=== PATIENT | male | born 1990 | race African-American/Black ===

== ENCOUNTER 2023-01-25 00:32 | Emergency (ER) | payer OTHER ==
[~2023-01-25] VITALS: Ht 180.3 cm; Wt 70.5 kg
[2023-01-25] MEDS ORDERED: BACITRACIN 0.9 GM PACKET OINTMENT TP ONE (01:30)
[2023-01-25] MEDS ORDERED: PERTUSS(ACELL),DIPH,TET VAC/PF 0.5 ML SYRINGE IM. ONE (01:30)
[2023-01-25] MEDS ORDERED: LIDOCAINE 1%/EPI 1:200,000/PF 30 ML VIAL SQ ONE (01:30)
[2023-01-25] MEDS ORDERED: ACETAMINOPHEN 500 MG TABLET PO ONE (01:30)
[2023-01-25 03:48] VITALS: BP 136/71; PULSE 88; RESP 18; TEMP 98.9
== END 2023-01-25 05:08 | disposition home or self-care (01) ==
LOC: EMS 00:33
DX: S02.2XXA Fracture of nasal bones, initial encounter for closed fracture (principal); S01.81XA Laceration without foreign body of other part of head, initial encounter; S01.111A Laceration without foreign body of right eyelid and periocular area, initial encounter; Y08.89XA Assault by other specified means, initial encounter; Y93.89 Activity, other specified; Y92.89 Other specified places as the place of occurrence of the external cause; Y99.8 Other external cause status
CPT/HCPCS: 99285; 70450; 70486; 72125; 90715; 90471; 12014; J3490